=== PATIENT | female | born 1955 | race Caucasian/White ===

== ENCOUNTER 2024-11-02 09:48 | Outpatient (CLI) | payer MEDICARE, MEDICAID ==
[~2024-11-02] VITALS: Ht 165.7 cm; Wt 77.1 kg
[~2024-11-02 09:48] MED LIST: ALBU8.5H4 IH; ASPI-1009 PO; CLOP75TA34 PO; DIPH-423 PO; ESCI20TA29 PO; FLUO10CA66 PO; FURO-150 PO; LEVO125T69 PO; LORA1TAB PO; MONT-48 PO; NAPR-56 PO; OMEP-84 PO; POTA10TA84 PO; ROSU10TA2 PO; TIOT18CA7 IH; [UNRECOGNIZED DRUG - CODE] PO
[2024-11-02 10:16] LABS: TOTAL HEMOGLOBIN 15.2 G/dl (12.0-16.0)
[2024-11-02] MEDS: albuterol 2.5 MG/3 ML nebule NEB ONE (10:55)
[2024-11-02 10:58] VITALS: PULSE 66; RESP 16; O2SAT 97
[2024-11-02] MEDS ORDERED: albuterol 2.5 MG/3 ML nebule NEB ONE (11:05)
[2024-11-02 11:09] VITALS: PULSE 78; RESP 18
--- NOTE | 2024-11-03 13:24 | PROCEDURE NOTE - Respiratory ---
Procedure Note-Respiratory Providers to Copies To 1: PAUL LUCIANO MD Procedure Name: This is a complete pulmonary function study dated November 02, 2024. Hemoglobin measurement was done as part of the study. Spirometry measurements: Both the forced vital capacity and the FEV1 are normal. The FEV1 ratio is normal. The flow rates are normal. After inhaled bronchodilator was given, there is no appreciable change in the flow volume curve. Lung volume measurements: All of the major lung volume determinations are normal. Lung diffusion measurement: The DLCO measurement is normal. We note that the hemoglobin measurement is in the normal range. Airway resistance measurement: The airway resistance is normal. Overall conclusion: Normal pulmonary function study. Based on this study there is no evidence for the diagnosis of COPD. We have no previous studies for comparison. PAUL LUCIANO MD Nov 03, 2024 13:24
== END 2024-11-02 23:59 | disposition home or self-care (01) ==
LOC: RT 09:48
PROVIDERS: ATTEND Internal Medicine Pulmonary Disease
DX: J44.9 Chronic obstructive pulmonary disease, unspecified (principal)
CPT/HCPCS: 85018; 94060; 94727; 94729; 94760